=== PATIENT | male | born 1990 | race Caucasian/White ===

== ENCOUNTER 2022-02-01 18:24 | Emergency (ER) | payer OTHER, SELFPAY ==
[2022-02-01 18:34] VITALS: BP 167/94; PULSE 85; RESP 20; TEMP 37.1; O2SAT 100
[2022-02-01 19:49] LABS: Alanine Aminotransferase 56 IU/L (<50); Albumin 4.5 g/dL (3.5-5.0); Albumin Globulin Ratio 1.1 (1.0-2.8); Alkaline Phosphatase 101 U/L (38-126); Aspartate Aminotransferase 42 IU/L (17-59); BUN Creatinine Ratio 16.9 (6-22); Bilirubin Total 0.4 mg/dL (0.2-1.3); Blood Urea Nitrogen 20 mg/dL (9-20); Calcium 9.3 mg/dL (8.4-10.2); Carbon Dioxide 27 mmol/L (22-32); Chloride 102 mmol/L (98-107); Estimated Glomerular Filt Rate > 60 mL/min (>60); Glucose 101 mg/dL (70-100); HEMOLYSIS 28 (0-50); Potassium 4.1 mmol/L (3.4-5.1); Sodium 142 mmol/L (137-145); Total Protein 8.5 g/dL (6.3-8.2)
[2022-02-01 19:54] LABS: Add Manual Diff / Slide Review NO; Basophils Absolute Auto 0 /uL (0-100); Basophils Percent Auto 0.6 % (0-2); Eosinophils Absolute Auto 200 /uL (0-450); Eosinophils Percent Auto 2.9 % (2-4); Hematocrit 40.4 % (41-53); Hemoglobin 13.6 g/dL (13.5-17.5); Lymphocytes Absolute Auto 3100 /uL (1100-4500); Lymphocytes Percent Auto 41.6 % (25-40); Mean Corpuscular HGB Conc 33.7 % (30-36); Mean Corpuscular Hemoglobin 28.3 PG (26-34); Monocytes Absolute Auto 700 /uL (0-900); Monocytes Percent Auto 9.4 % (3-14); Neutrophils Absolute Auto 3400 /uL (1500-7000); Neutrophils Percent Auto 45.5 % (50-75); Platelet Count 415 X10^3/uL (150-400); Red Blood Cell Count 4.81 X10^6/uL (4.5-5.9); Red Cell Distribution Width 13.7 % (11.6-14.8); White Blood Cell Count 7.5 X10^3/uL (4.5-11.0)
== END 2022-02-01 23:57 | disposition left against medical advice (07) ==
PROVIDERS: Emergency Provider Emergency Medicine
DX: R51.9 Headache, unspecified (principal)
CPT/HCPCS: 80053; 85025; 99281